=== PATIENT | male | born 1995 ===

== ENCOUNTER → 2022-01-09 | Outpatient (CLI) | payer BC ==
--- NOTE | 2022-01-10 06:20 | CT ---
EXAMINATION TYPE: CT abdomen pelvis wo con DATE OF EXAM: 01/09/2022 HISTORY: h/o renal stones, flank pain CT DLP: 940.4 mGycm. Automated Exposure Control for Dose Reduction was Utilized. TECHNIQUE: CT scan of the abdomen and pelvis is performed without oral or IV contrast. COMPARISON: NONE FINDINGS: Within the limitations of a non-contrast study, the following observations are made. LUNG BASES: No significant abnormality is appreciated. LIVER/GB: No significant abnormality is appreciated. PANCREAS: No significant abnormality is seen. SPLEEN: No significant abnormality is seen. ADRENALS: No significant abnormality is seen. KIDNEYS: There is 11 mm calculus in right renal pelvis axial image 74. There is 6 mm lower pole right renal calculus axial image 79. Mild fat stranding right renal pelvis into proximal ureter. No ureter calculus or hydroureter. No left renal calculus or hydronephrosis. Mild asymmetric fullness right re nal pelvis. No intraluminal calculus in the bladder. BOWEL: Normal-appearing appendix from the cecum. No suspicious small or large bowel dilatation. GENITAL ORGANS: No gross abnormality seen. LYMPH NODES: No greater than 1cm abdominal or pelvic lymph nodes are appreciated. OSSEOUS STRUCTURES: No significant abnormality is seen. OTHER: Tiny fat-containing umbilical hernia. IMPRESSION: There is 11 mm calculus in right renal pelvis causing mild right-sided pyelocaliectasis.
== END | disposition home or self-care (01) ==
LOC: RADCTMAIN 18:30
PROVIDERS: ATTEND Urology
DX: N13.2 Hydronephrosis with renal and ureteral calculous obstruction (principal)
CPT/HCPCS: 74176